=== PATIENT | female | born 1995 | race Caucasian/White ===

== ENCOUNTER 2025-08-23 07:55 | Outpatient (AMB) | payer BC, SELFPAY ==
--- OUTSIDE RECORDS SUMMARY | 2025-08-23 08:02 | XMS_ITS | Encounter Summary ---
Author Organization [facility] Address [address] [facility] [address] [place] [id number] Phone Care Team Providers Care [facility] Name Role Phone Margaret Dotson MD Primary Care Provider + Encounter Details Date Type Department Care Team (Late st Contact Info) Description 09/23/2024 Procedure Pass [facility] DEPT [address] [place] [id number] Social History Tobacco Use Types Packs/Day Years Used Date Smoking Tobacco: Never Smokeless Tobacco: Never Alcohol Use Standard Drinks/Week Comments Yes 0 (1 standard drink = 0.6 oz pur e alcohol) 1-2 drinks per month Education Answer Date Recorded Are you interested in more education? Not on arnoldo e 02/05/2023 Are you concerned about learning? Not on file 02/05/2023 No 02/05/2023 No 02/05/2023 Digital Access Answer Date Recorded No 02/17/2023 No 02/17/2023 Reliable internet access at home? Not on file 02/17/2023 Device with a working camera? Not on file Intimate Partner Violence Answer Date R ecorded Are you denied basic needs s uch as food, clothing, or medical care? No 09/23/2024 In the past 12 months have y ou been in a relationship with a person who hurts, threatens, or tries to control you? No 09/23/2024 Are you denied basic needs s uch as food, clothing, or medical care? No 09/23/2024 In the past 12 months have y ou been in a relationship with a person who hurts, threatens, or tries to control you? No 09/23/2024 Comments No Sex and Gender Information Value Date Recorded Sex Assigned at Female 02/04/2023 4:59 PM EDT Legal Sex Female 4:55 PM EDT Gender Identity Female 02/04/2023 4:59 PM EDT Sexual Orientation Straight 02/04/2023 4: 59 PM EDT documented as of this encounter Plan of Treatment Not on file documented as of this encounter Visit Diagnoses Not on filedocumented in this encounter Care Teams [facility] Relationship Specialty Start Date End Date Margaret Dotson MD PCP - General Internal Medicine 02/04/23 documented as of this encounter Additional Source Comments The information contained in this document represents components of the legal health record. It is not the complete legal health record.[facility]
--- OUTSIDE RECORDS SUMMARY | 2025-08-23 08:02 | XMS_ITS | Clinical Summary ---
Author Organization [facility] Address [address] [place] [address] Phone Care Team Providers Care Adhesive Primer Name Role Phone Margaret Dotson MD Primary Care Provider + Allergies Active Allergy Reactions Criticality Noted Date Comments Codeine Anxiety Low 10/01/2022 Other reaction(s): Hyperactive behavior Pollen Extracts 02/05/2023 Other reaction(s): environmental seasonal allergies Medications vitamins with ferrous fumarate- folic acid ( MULTIVITAMINS) 28 mg iron- 800 mcg Tab Take by mouth. 2 Active ascorbic acid, vitamin C, (VITAMIN C) 250 mg Chew Take 50 mg by mouth. 2 Active biotin 1 mg Cap Take 1 capsule by mouth. 2 Active diazePAM (VALIUM) 5 MG tablet Take 5 mg by mouth once. 4 Active prednisoLONE acetate (PRED FORTE) 1 % ophthalmic suspension Place 1 drop into the left eye 4 (four) times a day. 10 mL 1 5 Active moxifloxacin (VIGAMOX) 0.5 % ophthalmic solution Place 1 drop into the left eye 4 (four) times a day. 3 mL 1 5 Active atropine (ISOPTO ATROPINE) 1 % ophthalmic solution Place 1 drop into the left eye daily. 5 mL 1 5 Active Additional Information Patient not taking.Reported on 09/28/2024 Active Problems Problem Noted Date Diagnosed Date Class 1 obesity 09/23/2024 GERD (gastroesophageal reflux disease) 5 Anxiety 02/12/2024 Retinal detachment 02/12/2024 Overview (09/23/2024): surgery x4 12/05/2022, 01/26/2023, 02/06/23, 02/25/23 Family History Medical History Relation Comments Cataracts Father Diabetes Father Diabetes Paternal Grandmother Diabetes Paternal Uncle Relation Status Comments Father Paternal Grandmother Paternal Uncle Social History Tobacco Use Types Packs/Day Years Used Date Smoking Tobacco: Never Smokeless Tobacco: Never Tobacco Cessation:Counseling Given: Not Answered Alcohol Use Standard Drinks/Week Comments Yes 0 [...] Orientation Straight 02/04/2023 4: 59 PM EDT Last Filed Vital Signs Vital Sign Reading Time Taken Comments Blood Pressure 111/77 09/23/2024 6:47 PM EST Pulse 83 09/23/2024 6:47 PM EST Temperature 36.1 C (97 F) 09/23/2024 6:32 PM EST Respiratory Rate 18 09/23/2024 2:50 PM EST Oxygen Saturation 96% 09/23/2024 6:32 PM EST Inhaled Oxygen Concentration - - Weight 95.3 kg (210 lb) 09/23/2024 2:50 PM EST Height 167.6 cm (5' 6 ) 09/23/2024 2:50 PM EST Body Mass Index 33.89 09/23/2024 2:50 PM EST Plan of Treatment Health Maintenance Due Date Last Done Comments DEPRESSION SCREENING 2006 HEPATITIS C SCREENING 2012 HIV ONE-TIME SCREENING (18-65 YEARS) 2012 PAP SMEAR 2015 INFLUENZA VACCINE (#1) 2025 05/28/2021, 2019 COVID-19 VACCINE (2 - 2024- season) 2025 08/05/2021 Adult Td,Tdap Booster 01/12/2033 01/12/2023 , 11/29/2018, 04/01/2006, Additional history exists MENINGOCOCCAL VACCINES (ACWY) Aged Out 10/18/2007, 06/05/2002 No longer eligibl e based on patient's age to complete this topic SMOKING STATUS SCREENING (Once After 26 Yrs) Completed 10/25/2024 HEPATITIS A VACCINES Aged Out No long er eligible based on patient's age to complete this topic HIB VACCINES Aged Out No longer eligi ble based on patient's age to complete this topic MENINGOCOCCAL VACCINES (B) Aged Out N o longer eligible based on patient's age to complete this topic PNEUMOCOCCAL VACCINES (0-49 years) Aged Out No longer eligible based on patient's age to complete this topic Medical Devices Implanted Type Area Supervisor Calibration Device Identifier Shelf Expiration Date Model / Serial / Lot Lens Intraocular Tecnis Pre-Loaded Dcb00 18.5d - [id number] Implanted:Qty: 1 on 09/23/2024 by Roland Alba MD at [facility] Lens Left: Eye [employer] 08/30/2026 [id number] / [id number] / Iud Permanent Retainer Insurance [employer] [facility] [employer] [facility] doForms [facility] [employer] [facility] [employer] Care Teams Adhesive Primer Relationship Specialty Start Date End Date Margaret Dotson MD PCP - General Internal Medicine 02/04/23 Additional Source Comments The information contained in this document represents components of the legal health record. It is not the complete legal health record.[facility]
--- OUTSIDE RECORDS SUMMARY | 2025-08-23 08:02 | XMS_ITS | Clinical Summary ---
Author Organization [facility] Address [address] [place] [id number] Care Team Providers Care Roll Up Operator Name Role Phone Margaret Dotson MD Primary Care Provider [phone]- [phone] Allergies Active Allergy Reactions Criticality Noted Date Comments Codeine Anxiety Low 10/01/2022 Medications Vit-Fe Fumarate-FA ( Multivitamins) 28-0.8 MG Tab Take 1 tablet by mouth. 12/20/19 22 Active Biotin 1 MG Cap Take 1 capsule by mouth. 04/30/20 22 Active Ascorbic Acid (Vitamin C) 250 MG Chew Tab Chew 50 mg. 04/30/20 22 Active Cholecalciferol-Vi tamin C (Vitamin D3-Vitamin C) 1000-500 UNIT-MG Cap Take 25 mcg by mouth. 04/30/20 22 Active fluticasone (FloNASE) 50 mcg/spray nasal sprayIndications:D ysfunction of both eustachian tubes 1 spray into each nostril 2 times a day. 1 each 11/17/19 24 Active ondansetron (ZOFRAN-ODT) 4 MG disintegrating tabletIndications: Gastroenteritis Take 1 tablet (4 mg total) by mouth 3 times daily (every 8 hours) as needed for nausea or vomiting. Place tablet on tongue to dissolve. 20 tablet 12/30/19 24 Active proMETHAZINE-dextr omethorphan (proMETHAZINE-DM) 6.25-15 MG/5ML syrupIndications:V iral URI with cough Take 5 mL by mouth 4 times daily (every 6 hours) as needed for cough. 120 mL 08/14/20 25 Active benzonatate (TESSALON) 200 MG capsuleIndications :Viral URI with cough Take 1 capsule (200 mg total) by mouth 3 (three) times a day as needed for cough. 30 capsule 08/14/20 25 Active benzonatate (TESSALON) 200 MG capsuleIndications :Acute cough Take 1 capsule (200 mg total) by mouth 3 (three) times a day as needed for cough. 20 capsule 11/06/19 24 025 Discontinued Active Problems No known active problems Encounters Date Type Department Care Team Description 08/14/2025 5:15 PM EST Office Visit [facility] [address] [id number] Jaskaran Peters MD Nguyen, Kelvin Castellanos, PA Viral URI with cough (Primary Dx) from Last 3 Months Social History Tobacco Use Types Packs/Day Years Used Date Smoking Tobacco: Never Assessed Comments No Sex and Gender Information Value Date Recorded Sex Assigned at Not on file Legal Sex Female 4:59 PM EDT Gender Identity Not on file Sexual Orientation Not on file Last Filed Vital Signs Vital Sign Reading Time Taken Comments Blood Pressure 114/82 08/14/2025 6:10 PM EST Pulse 91 08/14/2025 6:10 PM EST Temperature 36.7 C (98 F) 08/14/2025 6:10 PM EST Respiratory Rate 12 08/14/2025 6:10 PM EST Oxygen Saturation 97% 08/14/2025 6:10 PM EST Inhaled Oxygen Concentration - - Weight 88.5 kg (195 lb) 08/14/2025 6:10 PM EST Height 167.6 cm (5' 6 ) 08/14/2025 6:10 PM EST Body Mass Index 31.47 08/14/2025 6:10 PM EST Plan of Treatment Health Maintenance Due Date Last Done Comments Hepatitis C Virus Screening 1994 HIV Screening 2007 DTaP/Tdap/Td Vaccines (1 - Tdap) 2013 Hepatitis B Vaccines (1 of 3 - 19+ 3-dose series) 2013 Pap Smear (Ages 21-65) 2015 COVID-19 Vaccine (3 - 2024- season) 2025 08/05/2021, 12/31/2020 Influenza Vaccine Completed 07/20/2025, , 05/28/2021, Additional history exists HPV Vaccines (No Doses Required) Completed Pneumococcal Vaccine: Pediatric (0-5 Years) and At-Risk Patients (6 to 49 Years) Aged Out No longer eligible based on patient's age to complete this topic Insurance [facility] Care Teams Roll Up Operator Relationship Specialty Start Date End Date Margaret Dotson MD [address] [place] [id number] PCP - General Internal Medicine 10/01/22
--- OUTSIDE RECORDS SUMMARY | 2025-08-23 08:02 | XMS_ITS ---
Author Name [facility] Organization Unknown History of Medication Use Medication Directions Dispensed Refills Start Date End Date Stat us ondansetron (ZOFRAN-ODT) disintegrating tablet 4 mg 12/30/2023 12/31/2023 active fluticasone (FloNASE) 50 mcg/spray nasal spray 1 spray into each nostril 2 times a day. 11/17/2023 12/18/2023 active amoxicillin-clavulana te (AUGMENTIN) 875-125 MG per tablet Take 1 tablet by mouth 2 (two) times a day. 11/06/2023 11/14/2023 active benzonatate (TESSALON) 200 MG capsule Take 1 capsule (200 mg total) by mouth 3 (three) times a day as needed for cough. 11/06/2023 active Ascorbic Acid (Vitamin C) 250 MG Chew Tab Chew 50 mg. 04/30/2022 active Biotin 1 MG Cap Take 1 capsule by mouth. 04/30/2022 active Cholecalciferol-Vitam in C (Vitamin D3-Vitamin C) 1000-500 UNIT-MG Cap Take 25 mcg by mouth. 04/30/2022 active Vit-Fe Fumarate-FA (KP Multivitamins) 28-0.8 MG Tab Take 1 tablet by mouth. 12/19/2021 active levonorgestrel (Mirena, 52 MG,) 20 mcg/24hr IUD 1 each by Intrauterine route once. active Allergies Allergen Reaction Severity Comment Documented Date Source Statu s CODEINE ANXIETY 10/01/2022 [facility] active Problems Problem Status Onset Date Problem Type Date of Resoluti on Source Viral URI with cough active EncounterDiagnosisAct [facility] Encounters Encounter Type Encounter Reason Primary Diagnosis Location Date Ambulatory Illness Illness [facility] 08/14/2025 Ambulatory Sore Throat Sore Throat [facility] 03/30/2024 Ambulatory Encounter for screening for COVID-19 Encounter for screening for COVID-19 [facility] 12/30/2023 Ambulatory Unspecified eustachian tube disorder, bilateral Unspecified eustachian tube disorder, bilateral [facility] 11/17/2023 Ambulatory Acute sinusitis, unspecified Acute sinusitis, unspecified [facility] 11/06/2023 Ambulatory Acute upper respiratory infection, unspecified [facility] 10/01/2022 Ambulatory Acute upper respiratory infection, unspecified [facility] 07/10/2022 Care Team Organization Name Specialty Phone Email Start Date End Da te [facility] Primary Care 08/15/2025 [facility] 02/01/2025 025 [facility] Primary Care 10/01/2022 [facility]ACHEL Primary Care 07/10/202210/01 [facility] NO PCP Primary Care 07/10/2022 10/01/2022 [facility] PCP,No Primary Care 07/10/2022
--- NOTE | 2025-08-23 08:03 | A.OFFPC_ITS ---
Vital Signs 08/23/25 08:06 Height 5 ft 7 in Weight 231 lb BMI 36.2 BP 98/70 Blood Pressure Location Lt brachial Position Sitting Respiration 16 Pulse 76 Pulse Source Pulse Oximeter Temp 97.3 F Temp Source Temporal Artery Scan Pulse Oximetry (%) 97 Oxygen Delivery Method Room Air Intake Visit Reasons: Est Care Heater Furnace Required: No Accompanied by: Self / Same As Patient Allergies codeine Adverse Reaction (Intermediate, Verified 08/23/25 08:03) hyperactive behavior Medication List - Last Reconciled 08/23/25 by Margaret Dotson MD No Known Home Meds Tobacco use date assessed: 08/23/25 Dental Screening Dental Screen Date: 08/23/25 Did you have a dental visit in the last 12 months?: Yes Was dental information given to patient?: Patient has dentist HPI HPI Comments History of Present Illness Details The patient is a 30 year old female presenting for an annual physical exam and to reestablish care. 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 Mesa. The patient's condition is now considered stable and as good as it's going to get. The patient is following up with Dr. Lewis at [facility] every six months, with plans to transition to yearly follow-ups if the condition remains stable. The right eye is unaffected. Generalized anxiety disorder: The patient reports a history of baseline anxiety, which is being managed with therapy. The patient sees a therapist virtually on an as-needed basis and reports improved coping mechanisms over the years. A recent SUNNY-7 score was 7, indicating mild anxiety. Concern for Attention-Deficit/Hyperactivity Disorder (ADHD): The patient expresses concerns about symptoms suggestive of ADHD, which have become more noticeable since and childbirth. Symptoms include difficulty focusing, trouble multitasking, procrastinating on simple tasks, and a need to fidget or be doing something with the patient's hands to concentrate. These symptoms are reportedly impacting the patient's ability to work. Seasonal Allergic Rhinitis: The patient takes generic cetirizine for seasonal allergies, particularly during the fall and spring. Health Maintenance: The patient is diligent with preventive care, including dental visits every six months and regular INVOICE CONTROL CLERK appointments. The last annual INVOICE CONTROL CLERK visit was a few months ago, and a Pap smear was not required at that time. Social History: - Employment: The patient works from [employer] full-time for [employer]. - Family status: The patient is and has a 2.5-year-old daughter. - Nutrition: The patient reports high wa ter intake, drinking two to three 40- ounce bottles of water per day. Care Team [facility] Medical History (Updated 08/23/25 @ 08:25 by Margaret Dotson MD) Routine medical exam Gestational diabetes Retinal detachment Generalized anxiety disorder Family History (Updated 08/22/25 @ 22:43 by Margaret Dotson MD) Mother CABG (coronary artery bypass graft) planned Father Diabetes mellitus Paternal Grandmother Diabetes mellitus Other Coronary artery disease Social History Housing: House Patient Tobacco Use Status: Never used Tobacco e-Cigarette/Vaping Use: Never Used Current occupational status: employed Current occupation: [employer] Questionnaire PHQ-9 Over the last 2 weeks, how often have you been bothered by any of the following problems? 1. Little interest or pleasure in doing things: not at all 2. Feeling down, depressed, or hopeless: not at all 3. Trouble falling or staying asleep, or sleeping too much: not at all 4. Feeling tired or having little energy: several days 5. Poor appetite or overeating: not at all 6. Feeling bad about yourself - or that you are a failure or have let yourself or your family down: not at all 7. Trouble concentrating on things, such as reading the newspaper or watching television: several days 8. Moving or speaking so slowly that other people could have noticed. Or the opposite - being so fidgety or restless that you have been moving around a lot more than usual: not at all 9. Thoughts that you would be better off or of hurting yourself in some way: not at all Total score: 2 Depression Screening Interpretation: Negative Depression Screening Done: Yes 21644 - PHQ-9 Billing: Yes Source: Developed by Drs. Tru Silverman, Sary Roland, Sheldon Land and colleagues, with an educational yuniel from [employer]. Thrive Questionnaire Date Thrive assessed: 08/23/25 I am a: Patient What is your living situation today?: I have a steady place to live Within the past 12 months, did the food you bought not last and you didn't have the money to get more?: Never true Within the past 12 months, did you worry whether your food would run out before you got money to buy more?: Never true Do you have trouble paying for medicines?: No Do you have trouble getting transportation to medical appointments?: No Do you have trouble paying your heating and electricity bill?: No Do you have trouble taking care of your child, family member or friend?: No Do you have trouble with day-to-day activities such as bathing, preparing meals, shopping, managing finances, etc.?: No Are you currently unemployed and looking for a job?: No Are you interested in more education?: No Please select the resources that you would like help with: None THRIVE Score: 0 AUDIT C Alcohol Use Questionnaire (AUDIT-C) 1. How often do you have a drink containing alcohol?: Monthly or less 2. How many drinks containing alcohol do you have on a typical day when you are drinking?: 1 or 2 3. How often do you have six or more drinks on one occasion?: Never Total Score: 1 SUNNY-7 AMB Questionnaire SUNNY-7 Date SUNNY - 7 assessed: 08/23/25 Feeling nervous, anxious, or on edge: 1 = Several days Not being able to stop or control worryin = More than half the days Worrying too much about different things: 2 = More than half the days Trouble relaxin = Several days Being so restless that it is hard to sit still: 0 = Not at all Becoming easily annoyed or irritable: 1 = Several days Feeling afraid as if something awful might happen: 0 = Not at all Total SUNNY-7 score (0-4 normal; 5-9 mild; 10-14 moderate; 15-21 severe): 7 Source: Developed by Drs. Tru Silverman, Sary Roland, Sheldon Land and colleagues, with an educational yuniel from [employer]. Review of Systems Narrative Review of Systems - Eyes: Reports stable, limited vision in the left eye post-surgery. Reports normal vision in the right eye. - Cardiovascular: Denies swelling in the extremities. - Gastrointestinal: Denies abdominal pain. - Psychiatric: Reports baseline anxiety. Reports new onset of difficulty focusing, difficulty multitasking, and a need to fidget, concerning for ADHD. Reports feeling good and having better coping skills. - Allergic/Immunologic: Reports seasonal allergies in the fall and spring. Physical exam (Primary Care) Vital Signs: Last Vital Signs Temp 97.3 F 08/23/25 08:06 Pulse 76 08/23/25 08:06 Resp 16 08/23/25 08:06 BP 98/70 08/23/25 08:06 Pulse Ox 97 08/23/25 08:06 Oxygen Delivery Method Room Air 08/23/25 08:06 BMI result Body Mass Index 36.2 Tobacco/Smoking Status: Tobacco use Status Tobacco use date assessed 08/23/25 08/23/25 08:10 Patient Tobacco Use Status Never used Tobacco 08/23/25 08:10 e-Cigarette/Vaping Use Never Used 08/23/25 08:10 PHQ-9: PHQ-9 Score PHQ-9: Total score 2 08/23/25 08:54 Depression Screening Interpretation: Negative Thrive Assessment: Date of Thrive Assessment Date Thrive assessed 08/23/25 08/23/25 08:42 Narrative Physical Exam - Head/Ears/Nose/Throat: Tympanic membranes are clear bilaterally with no erythema. Oropharynx is clear. - No carotid bruits. - Respiratory: Lungs are clear to auscultation bilaterally, with no wheezing. - Cardiovascular: Heart has a normal rate and rhythm. - Abdomen: Soft and non-tender with normoactive bowel sounds. - Extremities: No edema in the lower extremities. - Lymphatics: No cervical or supraclavicular lymphadenopathy. Coding Level of Care Code Est Pt Prev Care 18-39y(96741) Complex visit Add On G2211 Diagnoses Generalized anxiety disorder F41.1 Routine medical exam Z00.00 Additional Codes PHQ-9 - 53889 - PHQ-9 Billing: Yes ([id number]) Assessment & Plan Assessment & Plan (1) Generalized anxiety disorder: Code(s): F41.1 - Generalized anxiety disorder Category: Medical (2) Routine medical exam: Code(s): Z00.00 - Encounter for general adult medical examination without abnormal findings Category: Medical Plan Assessment and Plan 1. Concern for Attention-Deficit/Hyperactivity Disorder (ADHD) - The patient reports experiencing difficulty with focus and multitasking, which is impacting work. - Will refer for a one-time psychiatry consultation for further evaluation and diagnosis. - It was explained that any underlying anxiety may need to be addressed first. 2. Generalized Anxiety Disorder - The patient's condition is mild, with a SUNNY-7 score of 7. - The patient will continue with therapy on an as-needed basis. - No changes to management at this time. 3. Retinal disorder of left eye, status post-surgery - The condition is stable. - The patient will continue with scheduled follow-ups with the retina specialist, Dr. Lewis, every six months. - A request for records from [facility] and [facility] will be made. 4. Health Maintenance - The patient is fasting today, and labs will be drawn. - The patient was counseled on increasing physical activity to three hours of moderate-intensity aerobic exercise per week. Plan - Refer patient for a one-time psychiatry consultation for evaluation of possible ADHD. - Continue current management for anxiety, including as-needed therapy. - Draw fasting labs today. - Counselled patient to aim for three hours of moderate-intensity aerobic exercise per week. Discussion Notes I discussed the patient's concerns regarding symptoms of inattention and difficulty focusing and impact on her work. I explained that I will send a referral to a psychiatry consult team for a one-time evaluation. I clarified that the consulting team will assess the symptoms and may recommend treating any underlying anxiety first before addressing ADHD. The patient agreed with this plan. We also reviewed health maintenance, and I advised aiming for three hours of moderate aerobic exercise weekly. Patient Instructions - A referral will be sent to a psychiatry specialist to evaluate your concerns about focus and attention. - Continue to see your therapist as you feel you need to for anxiety. - Try to get about 3 hours of medium-level exercise per week, which you can break up into smaller amounts of time. - Continue to drink plenty of water throughout the day. Orders: Orders Complete Blood Count Auto Diff Today Z00.00 - Encounter for general adult medical examination without abnormal findings Comprehensive Met. Panel Today Z00.00 - Encounter for general adult medical examination without abnormal findings Lipid Panel Today Z00.00 - Encounter for general adult medical examination without abnormal findings Medications: New multivitamin 1 tab PO DAILY cetirizine 10 mg PO DAILY PRN
[2025-08-23 08:06] VITALS: BP 98/70; PULSE 76; RESP 16; TEMP 36.3; O2SAT 97; BMI 36.2
== END 2025-08-23 08:42 | disposition home or self-care (01) ==
LOC: HO.HMCHD 07:55
PROVIDERS: PCP Internal Medicine; Visit Provider Internal Medicine
DX: Z00.00 Encounter for general adult medical examination without abnormal findings (principal); F41.1 Generalized anxiety disorder

== ENCOUNTER 2025-08-23 08:52 | Outpatient (REF) | payer BC, SELFPAY ==
[2025-08-23 10:25] LABS: MANUAL DIFF FLAG NO
[2025-08-23 10:33] LABS: Hematocrit 43.1 % (37.0-47.0); Hemoglobin 14.5 g/dl (12.0-16.0); Imm Gran Abs Auto 0.03 X10*3/uL (0.00-0.03); Imm Gran Pct Auto 0.4 % (0.0-0.4); Lymphocytes Absolute Auto 2.7 X10*3/uL (1.2-4.9); Mean Corpuscular HGB Conc 33.6 g/dl (31.0-35.0); Mean Corpuscular Hemoglobin 28.7 pg (27.0-33.0); Mean Corpuscular Volume 85.2 fL (80.0-98.0); NRBC Abs Auto 0.000 X10*3/uL (0.0-0.012); NRBC Pct Auto 0.0 /100WBC (0.0-0.2); Platelet Count 316 X10*3/uL (160-400); Red Blood Count 5.06 X10*6/uL (4.20-5.50); White Blood Count 8.1 X10*3/uL (4.8-10.8)
[2025-08-23 10:49] LABS: Alanine Aminotransferase 23 U/L (0-31); Albumin Level 4.8 g/dL (3.5-5.0); Alkaline Phosphatase 64 U/L (39-117); Anion Gap 10 (12-20); Aspartate Amino Transferase 23 U/L (5-31); Blood Urea Nitrogen 11 mg/dL (9-16); Calcium 9.4 mg/dL (8.4-10.2); Carbon Dioxide 27 mmol/L (22-29); Chloride 106 mmol/L (96-108); Cholesterol 180 mg/dL (<200); Estimated Glomerular Filt Rate > 60; HDL Cholesterol 45 mg/dL (>40); Potassium 4.4 mmol/L (3.3-5.1); Sodium 139 mmol/L (135-145); Total Protein 7.8 g/dL (6.5-8.0); Triglycerides 136 mg/dL (<150)
== END 2025-08-23 08:53 | disposition home or self-care (01) ==
LOC: HO.10HDL 08:52
PROVIDERS: Visit Provider Internal Medicine
DX: Z00.00 Encounter for general adult medical examination without abnormal findings (principal); F41.1 Generalized anxiety disorder
CPT/HCPCS: 36415; 80053; 80061; 85025; 96127; 99395